=== PATIENT | female | born 1960 | race Caucasian/White ===

== ENCOUNTER 2017-04-07 21:04 | Emergency (ER) | payer MEDICARE ==
[~2017-04-07] VITALS: Ht 154.9 cm; Wt 65.8 kg
--- NOTE | ~2017-04-07 | CR21 ---
[facility] A Service of [facility] & [facility] RADIOLOGY TEXT RESULTS PATIENT: LEO CONCEPCION LOCATION: [facility]FT[facility] : 62 UNIT #: [id number] AGE: [address]: KWADWO MADDOX SEX: F ORDER DR: [id number] [facility] [address] [place], [place] [address] [id number] E MR#: [id number] Acc #: [id number] NAME: LEO CONCEPCION : 1960 SEX: F STUDY DATE/TIME: 04/07/2017 22:27 UNIT: [facility] ROOM: STUDY DESCRIPTION: CR Ankle Min 3 Views Rt Attending Physician: Kwadwo Maddox Aprn Ordering Physician: Kwadwo Maddox Aprn Primary Care Physician: Valeriano Carroll M.D. MEDICAL IMAGING REPORT This report is preliminary unless electronic signature is present EXAM Right ankle 04/07 22:27 INDICATIONS Pain, swelling and redness after fall today. FINDINGS Three views of the right ankle are compared with 04/03/2008. The mortise is intact. 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 Well-corticated bone fragments adjacent to the distal fibula are compatible with old trauma. There is some lateral soft tissue swelling. No definite acute fractures. The patient does have an old calcaneus fracture. IMPRESSION Old calcaneus fracture with evidence of old trauma about the lateral malleolus. No clearly acute fractures are seen, although there is some lateral soft tissue swelling. No malalignment. Dictated by... Sherman Jimenez Jr., M.D. THIS IS AN ELECTRONICALLY VERIFIED REPORT Sherman Jimenez Jr., M.D. at 04/09/2017 3:12 AM MAURICIO/miguelina TD: 04/08/2017 19:45 JOB #: [id number] MEDICAL IMAGING REPORT Page 1 of 1 COPY
--- NOTE | ~2017-04-07 | CR173 ---
[facility] A Service of [facility] & [facility] RADIOLOGY TEXT RESULTS PATIENT: LEO CONCEPCION LOCATION: [facility] : 62 UNIT #: [id number] AGE: [address]: KWADWO MADDOX SEX: F ORDER DR: [id number] [facility] [address] [place], [place] [address] [id number] E MR#: [id number] Acc #: [id number] NAME: LEO CONCEPCION : 1960 SEX: F STUDY DATE/TIME: 04/07/2017 2221 UNIT: [facility] ROOM: STUDY DESCRIPTION: CR Knee 3 Views Rt Attending Physician: Kwadwo Maddox Aprn Ordering Physician: Kwadwo Maddox Aprn Primary Care Physician: Valeriano Carroll M.D. MEDICAL IMAGING REPORT This report is preliminary unless electronic signature is present EXAM Right knee, 04/07 at 2221. INDICATION Pain, swelling and redness after a fall today. FINDINGS Three views of the right knee were obtained. No fracture or malalignment is seen. There is no joint effusion. Soft tissues are unremarkable. IMPRESSION Negative right knee. Dictated by... Sherman Jimenez Jr., M.D. THIS IS AN ELECTRONICALLY VERIFIED REPORT Sherman Jimenez Jr., M.D. at 04/09/2017 3:12 AM MAURICIO/mari TD: 04/08/2017 19:44 JOB #: [id number] MEDICAL IMAGING REPORT Page 1 of 1 COPY
--- NOTE | ~2017-04-07 | CR253 ---
[facility] A Service of [facility] & [facility] RADIOLOGY TEXT RESULTS PATIENT: LEO CONCEPCION LOCATION: [place] : 62 UNIT #: [id number] AGE: [address]: KWADWO MADDOX SEX: F ORDER DR: [id number] [facility] [address] [place], [place] [address] [id number] E MR#: [id number] Acc #: [id number] NAME: LEO CONCEPCION : 1960 SEX: F STUDY DATE/TIME: 04/07/2017 2225 UNIT: [facility] ROOM: STUDY DESCRIPTION: CR Tibia and Fibula 2 Views Rt Attending Physician: Kwadwo Maddox Aprn Ordering Physician: Kwadwo Maddox Aprn Primary Care Physician: Vlaeriano Carroll M.D. MEDICAL IMAGING REPORT This report is preliminary unless electronic signature is present EXAM Right tib-fib, 04/07 at 2225. INDICATION Pain, swelling and redness after a fall this morning. FINDINGS AP and lateral views of the tibia and fibula were obtained. No fracture or malalignment is identified. Soft tissues of the lower leg are unremarkable. IMPRESSION Negative right lower leg. Dictated by... Sherman Jimenez Jr., M.D. THIS IS AN ELECTRONICALLY VERIFIED REPORT Sherman Jimenez Jr., M.D. at 04/09/2017 3:12 AM MAURICIO/mari TD: 04/08/2017 19:45 JOB #: [id number] MEDICAL IMAGING REPORT Page 1 of 1 COPY
[~2017-04-07 21:04] MED LIST: BACLOFEN10 MG PO; BUDEPRION XL150 MG PO; CELEXA10 MG PO; METHADONE HCL10 MG PO; NAPROXEN PO; NEXIUM PO; PRAVACHOL20 MG PO; TYLOX 5/500 CAP1 CAP PO; XANAX0.5 MG PO
== END 2017-04-07 23:53 | disposition home or self-care (01) ==
LOC: CED 21:04 → CFTX 21:04
DX: S93.401A Sprain of unspecified ligament of right ankle, initial encounter (principal); S80.02XA Contusion of left knee, initial encounter; Z23 Encounter for immunization; F17.210 Nicotine dependence, cigarettes, uncomplicated; E78.5 Hyperlipidemia, unspecified; Z79.899 Other long term (current) drug therapy; W01.0XXA Fall on same level from slipping, tripping and stumbling without subsequent striking against object, initial encounter; Y92.009 Unspecified place in unspecified non-institutional (private) residence as the place of occurrence of the external cause
CPT/HCPCS: 29345; 29405; 29540; 73562; 73590; 73610; 90471; 90715; 99283